=== PATIENT | female | born 1965 | race Caucasian/White ===

== ENCOUNTER 2017-04-23 15:08 | Emergency (ER) | END 2017-04-23 17:47 | disposition home or self-care (01) | DX: R10.13 Epigastric pain (principal); K29.70 Gastritis, unspecified, without bleeding; R11.2 Nausea with vomiting, unspecified; Z79.82 Long term (current) use of aspirin; Z87.891 Personal history of nicotine dependence | CPT/HCPCS: 36415; 80053; 81001; 83690; 85025; 96374; 96375; 99284; J2270; J2405; J7030 ==

== ENCOUNTER → 2018-04-25 | Outpatient (CLI) | END | disposition home or self-care (01) ==

== ENCOUNTER 2018-05-05 10:19 | Day surgery (SDC) | END 2018-05-05 16:35 | disposition home or self-care (01) ==

== ENCOUNTER → 2018-06-11 | Outpatient (CLI) | END | disposition home or self-care (01) ==

== ENCOUNTER 2018-06-23 10:15 | Day surgery (SDC) | END 2018-06-23 16:21 | disposition home or self-care (01) ==

== ENCOUNTER 2019-01-15 08:05 | Day surgery (SDC) | payer BC ==
[~2019-01-15] VITALS: Ht 149.9 cm; Wt 57.0 kg
[~2019-01-15 08:05] MED LIST: BUPR150T6 PO; GABA300C16 PO; OMEP40CA6 PO; SIMV20TA PO; TRAM50TA PO
[2019-01-15] MEDS ORDERED: [UNRECOGNIZED DRUG - OTHER] (08:56)
[2019-01-15 09:13] VITALS: Ht 149.9 cm; Wt 57.0 kg
--- NOTE | 2019-01-15 09:31 | PREAC ---
Date/Time of Note Date/Time of Note DATE: 01/15/19 TIME: 09:28 Anesthesia Eval and Record Evaluation Time Pre-Procedure Interview DATE: 01/15/19 TIME: 09:28 Age 53 Sex female NPO: 8 hrs Preoperative diagnosis RECTAL BLEED, GERD Planned procedure EGD AND COLONOSCOPY Past Medical History Past Medical History: Includes Cardio: Dyslipidemia Musculoskeletal: Other (FIBROMYALGIA) GI: GERD Surgery & Anesthesia Issues No known issue Meds Anticoagulation: No Beta Thalia within 24 hr: No Reason Beta Thalia not given: Pt. not on B-Thalia Reported Medications [Meloxicam Prn] No Conflict Check 01/15/19 Gabapentin* (Gabapentin*) 300 Mg Capsule, 300 MG PO TID PRN for PAIN, #90 CAP 05/05/18 Omeprazole* (Omeprazole*) 40 Mg Capsule.dr, 40 MG PO DAILY, #30 CAP 05/05/18 Tramadol Hcl* (Ultram*) 50 Mg Tablet, 50 MG PO DAILY PRN for PAIN, TAB 04/23/17 Simvastatin* (Zocor*) 20 Mg Tablet, 20 MG PO QHS, #30 TAB 04/23/17 Bupropion Hcl* (Bupropion XL*) 150 Mg Tab.er.24h, 150 MG PO DAILY, TAB.SA 04/23/17 Meds reviewed: Yes Allergies Coded Allergies: No Known Drug Allergies (Verified Allergy, Unknown, 06/23/18) Allergies Reviewed: Yes Labs/Studies Labs Reviewed: Reviewed by anesthesiologist test: N/A Pre-procedure Exam Airway: Adequate mouth opening, Adequate thyromental dist Mallampati: Mallampati I Teeth: Normal Lung: Normal Heart: Normal ASA Physical Status ASA physical status: 2 Emergency: None Planned Anesthetic General/MAC: MAC Planned Pain Management Parenteral pain med Pre-operative Attestations Prior to commencing anesthesia and surgery, the patient was re-evaluated, there was verification of: *The patient's identity *The results of appropriate recent lab work and preoperative vital signs *The above evaluation not changing prior to induction *Anesthetic plan, risk benefits, alternative and complications discussed with patient/family; questions answered; patient/family understands, accepts and wishes to proceed. MACO YOUSIF Jan 15, 2019 09:31
[2019-01-15 09:45] VITALS: BP 140/67; PULSE 62; RESP 30
[2019-01-15] MEDS ORDERED: LIDOCAINE 2% (SDV) 5 ML INJ ONE (09:45)
[2019-01-15] MEDS ORDERED: PROPOFOL 40 ML ONE (09:45)
[2019-01-15] MEDS ORDERED: EPHEDrine SULFATE 50 MG/5 ML SYG IV PRN (10:00)
[2019-01-15] MEDS ORDERED: hydrALAzine 20 MG INJ IV PRN (10:00)
[2019-01-15] MEDS ORDERED: LABETALOL HCL 20MG INJ IV PRN (10:00)
[2019-01-15] MEDS ORDERED: FENTAnyl 50 MCG/ML VIAL IV PRN (10:00)
[2019-01-15] MEDS ORDERED: ONDANSETRON 4 MG INJ IV PRN (10:00)
--- NOTE | 2019-01-15 10:30 | PAC ---
Date/Time of Note Date/Time of Note DATE: 01/15/19 TIME: 10:29 Post-Anesthesia Notes Post-Anesthesia Note Last documented vital signs Vital Signs Date Temp Pulse Resp B/P (MAP) Pulse Ox O2 O2 Flow FiO2 Time Delivery Rate 01/15/19 97.6 62 30 140/67 99 Room Air 1029 (91) Activity: WNL Respiratory function: WNL Cardiovascular function: WNL Mental status: Baseline Pain reasonably controlled: Yes Hydration appropriate: Yes Nausea/Vomiting absent: Yes MACO YOUSIF Jan 15, 2019 10:30
[2019-01-15 10:44] VITALS: BP 124/61; PULSE 64; RESP 10
--- NOTE | 2019-01-17 06:59 | CONS ---
DATE OF ADMISSION: 01/15/2019 DATE OF CONSULTATION: PATIENT NAME: MICHAEL BRITT Dear Dr. Way: I thank you very much for this kind referral. HISTORY OF PRESENT ILLNESS: Ms. Michael Britt is a 53-year-old female patient who has been referre d to me for further evaluation of rectal bleeding, change in the bowel habit and upper abdominal pain . The patient states she has got epigastric pain associated with bloating. Symptomatic medical ther apy is not helping her. She also complains of chronic heartburn. She is not taking any nonsteroidal anti-inflammatory agents. Appetite is good, and there is no weight loss. The patient is status pos t surgery for gallbladder cancer. No history of liver disease. She also complains of change in the bowel habit with constipation and rectal bleeding. No past history of colon neoplasm and inflammator y bowel disease. She is not a hypertensive or diabetic. No heart disease, lung problem or kidney di sease. She has got hyperlipidemia. She has fibromyalgia. She is status post hysterectomy. SOCIAL HISTORY: Nonsmoker. No alcohol abuse. The patient's sister has been diagnosed to have colon cancer. ALLERGIES: No drug allergies. MEDICATIONS: 1. Simvastatin. 2. Bupropion. 3. Gabapentin. 4. Tramadol. She is 4 feet 11 inches tall and weighs 130 pounds. HEART: Normal heart sounds. LUNGS: Clear. ABDOMEN: Soft, no masses. Normal bowel sounds. RECTAL: Deferred per the patient's request. It will be done at the time of colonoscopy. NEUROLOGIC: Normal neurological exam. IMPRESSION: 1. Change in the bowel habit with constipation. 2. Rectal bleeding. 3. Patient's sister has been diagnosed to have colon cancer. 4. Upper abdominal pain associated with bloating. 5. Chronic heartburn, not responding to therapy. 6. Hyperlipidemia. 7. Fibromyalgia. 8. Status post surgery for gallbladder cancer. 9. Status post hysterectomy and tummy tuck. PLAN: 1. Advised high fiber diet. 2. Pantoprazole 40 mg p.o. q.a.m. 3. Colonoscopy and upper endoscopy for further evaluation. 4. Because of the multiple medications including tramadol the patient has been taking, she will be r esistant to narcotics and she needs monitored anesthesia care. The procedures and possible complications are well explained to the patient. She understands and con sents to the procedures. I thank you once again. With warmest personal regards, Dictated By: TRACI ASHRAF MD GD/NTS Conf#: [id number] DID#: [id number] CC: YADY WAY MD;*EndCC*
== END 2019-01-15 11:41 | disposition home or self-care (01) ==
LOC: GIL 08:05
PROVIDERS: ATTEND Internal Medicine Gastroenterology
DX: R19.4 Change in bowel habit (principal); K64.8 Other hemorrhoids; K57.30 Diverticulosis of large intestine without perforation or abscess without bleeding; K21.9 Gastro-esophageal reflux disease without esophagitis; K29.60 Other gastritis without bleeding
CPT/HCPCS: 88305; 88312